=== PATIENT | male | born 1960 | race Caucasian/White ===

== ENCOUNTER 2017-01-09 13:59 | Inpatient (IN) | payer OTHER ==
[2017-01-09] MEDS ORDERED: ZOFRAN IV PRN ×2 (15:19→16:11)
[2017-01-09] MEDS ORDERED: NORCO-7.5 PO PRN (15:19)
[2017-01-09] MEDS ORDERED: TYLENOL PO PRN ×2 (15:19→16:11)
[2017-01-09] MEDS ORDERED: ZOSYN 3.375 GM/NS 50 ML IV SCH (15:30)
[2017-01-09] MEDS ORDERED: NS 1,000 ML IV SCH (15:30)
--- NOTE | 2017-01-09 15:54 | HISTORY AND PHYSICAL ---
HISTORY OF PRESENT ILLNESS: This is a 56-year-old well known to me who has a history of morbid obesity and chronic venous insufficiency. He has had periodic bouts of cellulitis and was admitted back on 03/01/2015 with a similar episode. He has had increased redness, increased swelling, and has had some fever at home and some chills. PAST MEDICAL HISTORY: Other past medical history is fairly unremarkable other than he has had, I think, corneal aplasia or dysplasia, and he has had some surgeries on his eyes. ALLERGIES: No known drug allergies. FAMILY HISTORY: Noncontributory. SOCIAL HISTORY: Negative for alcohol or tobacco. He has 3 children. 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 REVIEW OF SYSTEMS: General: He has been attempting to lose some weight. I am not sure if his weight has fluctuated much at all. HEENT: Unremarkable. Respiratory: No increased work of breathing or dyspnea. Cardiovascular: No chest pain or detected palpitations. Gastrointestinal: Unremarkable. Genitourinary: Unremarkable. Musculoskeletal/Neurologic: No significant complaints. Endocrinologic/Hematologic: No significant history. PHYSICAL EXAMINATION: GENERAL: On presentation, well-developed, well nourished, white male. Height 6 feet 2 inches. Weight 367 pounds. HEENT: Pupils equal, round, reactive. CVP less than 6 cm. LUNGS: Clear in all lung torres. CARDIOVASCULAR: Regular rhythm and rate, without murmurs or S3. ABDOMEN: Soft. SKIN: Warm and dry. ABDOMEN: Soft. EXTREMITIES: Lower extremities with lymphedema from the feet all the way up to the knee, and intense erythema. LABORATORIES: Pending at this time. ASSESSMENT AND PLAN: Cellulitis with fever and some bacteremia, so will put him on vancomycin and Zosyn for now and see if we can get this calmed down. May consider using Unna boots or Unna wrap. At this point, we are just going to try and elevate his legs. We will give him IV fluid of just normal saline with saline lock. Will keep the saline lock right now. He does not appear dehydrated. I want to check his laboratories and see how his renal function is doing.
[2017-01-09] MEDS ORDERED: VANCOMYCIN IV PER PHARMACY MISC SCH (16:11)
[2017-01-09 16:24] LABS: BASO% 0.1 % (0.0-0.8); EOS# 0.01 X1000 (0.0-0.7); EOS% 0.1 % (0.0-10.0); HEMATOCRIT 38.1 % (42.0-52.0); HEMOGLOBIN 12.7 g/dL (14.0-18.0); IMM GRAN# 0.09 X1000 (0.0-0.04); IMM GRAN% 0.5 % (0.0-0.5); LYMPH# 0.23 X1000 (1.2-3.4); LYMPH% 1.3 % (20.5-51.1); MANUAL DIFF NEEDED? NO; MCH 29.8 PG (27-31); MCHC 33.3 g/dL (33-37); MCV 89.4 FL (81-99); MONO# 0.58 X1000 (0.11-0.59); MONO% 3.2 % (1.7-9.3); MPV 9.2 FL (7.4-10.4); NEUT% 94.8 % (42.2-75.2); PLT 263 X1000 (130-400); RBC 4.26 XMIL (4.7-6.1)
[2017-01-09] MEDS: ZOSYN 3.375 GM/NS 50 ML IV SCH ×2 (16:35→23:34)
[2017-01-09 16:47] LABS: AGAP 14; ALBUMIN 3.4 g/dL (3.5-5.0); ALKALINE PHOSPHATASE 72 U/L (32-122); BUN 16 mg/dL (8-22); CALCIUM 8.5 mg/dL (8.8-10.2); CHLORIDE 100 mmol/L (98-107); COSMO 275; GOT 20 U/L (10-34); GPT 23 U/L (10-44); SODIUM 136 mmol/L (136-145); TCO2 22 mmol/L (25-35); TOTAL PROTEIN 6.2 g/dL (6.3-8.3)
[2017-01-09] MEDS ORDERED: BACTROBAN CREAM TOP SCH (17:00)
[2017-01-09] MEDS ORDERED: VANCOMYCIN 2 GM in NS 500 ML IV ONE (18:00)
[2017-01-09] MEDS: NORCO-7.5 PO PRN ×2 (21:01→23:03)
[2017-01-09] MEDS: LOVENOX SUBQ SCH (21:03)
[2017-01-10] MEDS: ZOSYN 3.375 GM/NS 50 ML IV SCH ×2 (05:07→12:18)
[2017-01-10] MEDS: NORCO-7.5 PO PRN ×4 (05:39→21:26)
[2017-01-10] MEDS: PRILOSEC PO SCH (06:13)
[2017-01-10] MEDS: VANCOMYCIN 1,750 MG in NS 250 ML IV SCH ×2 (06:30→19:34)
[2017-01-10] MEDS ORDERED: PRILOSEC PO SCH (07:00)
[2017-01-10] MEDS: LOVENOX SUBQ SCH ×2 (09:09→20:48)
[2017-01-10] MEDS: BACTROBAN CREAM TOP SCH ×3 (09:09→17:29)
--- NOTE | 2017-01-10 11:44 | PROGRESS NOTE ---
DATE: 01/10/2017 SUBJECTIVE: He slept off and on. He said his legs are not hurting at the present time. The Unna wraps are on, but had slipped down a little bit to mid calf. The erythema seems to be a diminished, especially in the left leg. He did have a chill during the night. OBJECTIVE: Vital Signs: Temperature 97.7 degrees, pulse 86, respirations 18, blood pressure 116/62. CVP is less than 6 cm. Lungs: Clear in all lung torres. Cardiovascular: Regular rhythm and rate, without murmur or S3. Abdomen: Soft. Skin: Warm and dry. Extremities: Both lower calves with some induration and lymphedema, especially in the posterior. LABORATORIES: White blood cell count 17,860, hematocrit 38, platelet count 263,000. Sodium 136, potassium 4.0, chloride 100, bicarbonate 22, BUN 16, creatinine 1.0, albumin 3.4. ASSESSMENT AND PLAN: Cellulitis with bacteremia, elevated white count, so a systemic inflammatory response with this. Continue the vancomycin and the Zosyn. I am going to change his wraps. We will use an Eddie bandage that just goes from his ankle up to his knee. Continue to elevate his legs. Renal function looks good. Recheck the white blood cell count, I guess, in the morning. We will try and apply some Bactroban, as well, to the legs and see if this will add anything.
[2017-01-10] MEDS: ZOSYN 3.375 GM in NS 100 ML IV SCH (17:29)
[2017-01-11] MEDS: ZOSYN 3.375 GM in NS 100 ML IV SCH ×5 (00:45→22:59)
[2017-01-11] MEDS: VANCOMYCIN 1,750 MG in NS 250 ML IV SCH ×2 (05:43→18:20)
[2017-01-11] MEDS: PRILOSEC PO SCH (06:19)
[2017-01-11] MEDS: BACTROBAN CREAM TOP SCH ×3 (08:16→16:56)
[2017-01-11] MEDS: LOVENOX SUBQ SCH ×2 (08:17→20:59)
--- NOTE | 2017-01-11 08:55 | PROGRESS NOTE ---
DATE: 01/11/2017 SUBJECTIVE: Mr. Pathak's left leg is pretty red. It has more erythema. Not much tenderness to it. He is not hurting. The right leg looks good. We have been wrapping it with an Eddie bandage. He has got good capillary refill down there in the calf but it is circumferentially read from about 10 cm above the ankle to about 10 cm from his patella and the posterior seems to be less swollen and less dense. PHYSICAL EXAMINATION: Lungs: Lungs are clear in all lung torres. Cardiovascular Examination: Regular rhythm and rate without murmur or S3. Abdomen: Soft. Skin: Warm and dry. Is and Os: Good urine output. ASSESSMENT AND PLAN: Cellulitis, bacteremia, elevated white blood cell count. He is on Zosyn and vancomycin. Cultures are negative, blood cultures thus far. I will continue the Eddie and bandage and continue to elevate the legs. I think we are making some progress. He has not had the fever and chills. Will recheck a blood count and basic metabolic profile in the morning.
[2017-01-11] MEDS: NORCO-7.5 PO PRN ×2 (11:16→20:58)
[2017-01-12] MEDS: ZOSYN 3.375 GM in NS 100 ML IV SCH ×2 (05:45→18:36)
[2017-01-12] MEDS: VANCOMYCIN 1,750 MG in NS 250 ML IV SCH (06:27)
[2017-01-12] MEDS: PRILOSEC PO SCH ×2 (06:27→06:32)
[2017-01-12 07:43] LABS: MANUAL DIFF NEEDED? NO
[2017-01-12 08:03] LABS: BASO% 0.5 % (0.0-0.8); EOS# 0.28 X1000 (0.0-0.7); EOS% 4.4 % (0.0-10.0); HEMATOCRIT 36.9 % (42.0-52.0); IMM GRAN# 0.02 X1000 (0.0-0.04); IMM GRAN% 0.3 % (0.0-0.5); LYMPH# 0.88 X1000 (1.2-3.4); LYMPH% 13.8 % (20.5-51.1); MCH 29.3 PG (27-31); MCHC 32.5 g/dL (33-37); MCV 90.2 FL (81-99); MONO# 0.52 X1000 (0.11-0.59); MONO% 8.1 % (1.7-9.3); MPV 9.4 FL (7.4-10.4); NEUT% 72.9 % (42.2-75.2); PLT 262 X1000 (130-400); RBC 4.09 XMIL (4.7-6.1)
[2017-01-12 08:10] LABS: AGAP 11; BUN 10 mg/dL (8-22); CALCIUM 8.7 mg/dL (8.8-10.2); CHLORIDE 104 mmol/L (98-107); COSMO 282; POTASSIUM 4.3 mmol/L (3.5-5.1); SODIUM 142 mmol/L (136-145); TCO2 27 mmol/L (25-35)
[2017-01-12] MEDS: NORCO-7.5 PO PRN ×2 (09:47→22:18)
[2017-01-12] MEDS: BACTROBAN CREAM TOP SCH ×3 (09:49→19:56)
[2017-01-12] MEDS: LOVENOX SUBQ SCH ×2 (09:49→22:18)
[2017-01-12 12:04] LABS: INR 1.01; PROTIME 10.3 Seconds (9.2-11.7)
[2017-01-12] MEDS ORDERED: NS 250 ML ONE (15:48)
--- NOTE | 2017-01-12 16:24 | PROGRESS NOTE ---
DATE: 01/12/2017 SUBJECTIVE: Mr. Pathak's left leg still looks pretty red and angry. His IV has infiltrated. I think he still needs more IV antibiotic. I am going to ask Dr. Goss to look as well and consult Infectious Disease. PHYSICAL EXAMINATION: Vital Signs: Temperature 98.4 degrees, pulse 70, respirations 16, blood pressure 105/58. Eyes: Pupils equal, round. Lungs: Clear in all lung torres. Cardiovascular: Regular rhythm, rate without murmur or S3. Abdomen: Soft. Skin: Warm and dry. Urine output 1200 mL. LAB: White count 6390, hematocrit 36, platelet count 262,000. Sodium 142, potassium 4.3, chloride 104, bicarb 27, BUN 10, creatinine 1.0. ASSESSMENT AND PLAN: 1. Cellulitis, bacteremia, elevated white blood count on Zosyn and vancomycin. Will need to get IV access. I think he needs a longer term IV antibiotics. Will ask Dr. Goss to help assist about what antibiotics and how long he probably needs treatment. 2. Morbid obesity aware. Has had long discussions and continue encourage weight reduction. 3. Chronic venous insufficiency. Did note his repeat lab. Renal function looks good. White count has come down nicely. Will continue elevate his legs. We are using Eddie bandages, the older wraps really do not work very well on his large legs.
[2017-01-12] MEDS ORDERED: ZOSYN 3.375 GM/NS 50 ML IV SCH (18:00)
[2017-01-12] MEDS: KEFZOL 2 GM/D5W 50 ML IV SCH (19:56)
[2017-01-13] MEDS: KEFZOL 2 GM/D5W 50 ML IV SCH ×2 (03:31→11:37)
[2017-01-13 05:11] VITALS: BP 132/79
--- NOTE | 2017-01-13 06:15 | CONSULTATION ---
DATE OF CONSULTATION: 01/12/2017 CONCLUSION: Patient is admitted with leg cellulitis to both legs. The left was more involved than with the right leg. The patient is certainly is predisposed to this by being very obese and having chronic edema in his legs. RECOMMENDATIONS: I would suggest switching the patient's antibiotic to Ancef. I agree with sending the patient home with a PICC for IV Ancef 2 g IV every 8 hours for 2 weeks, then I would suggest that the patient see Dr. Mota in 2 weeks and at that time if he thinks the legs look good enough, he can stop the Ancef and I would suggest putting the patient on Keflex 500 mg p.o. every 8 hours for another 1-2 weeks. I would also suggest giving the patient an additional prescription for Keflex to take so that the patient could fill it and at the first sign he is getting leg cellulitis, he can have Keflex on hand and start taking it. Also, I told the patient that when he does start doing it when he has an acute attack that he should get off his legs and elevate them as much as possible. I have also told him that he should call Dr. Mota's office and let him know that he has started Keflex and leg elevation because of the possible attack of cellulitis and if that does not work, then certainly the patient would most likely need to be hospitalized. I told the patient though that the biggest thing for him would be to lose weight and to try to elevate his legs as much as possible, even when he does not have leg cellulitis. I looked for athlete's foot in this patient. I did not find any. Sometimes, this is the portal of entry for the organisms to get into the leg. With a patient that has so much edema, even just a minor scratch on his leg would be enough to cause an infection to develop. DISCUSSION: The patient had an attack of leg cellulitis. Two years ago, he had a similar attack. Laboratory studies thus far show a CBC with a white count of 6390, hemoglobin 12 and platelet count 262,000. Creatinine is 1, GFR is greater than 60. Liver function studies are normal. Blood cultures are sterile. PAST MEDICAL HISTORY/REVIEW OF SYSTEMS: Eyes and Ears: He has decreased vision. His hearing is okay. Neck: No stiffness. Respiratory: No cough or shortness of breath. Cardiovascular: No chest pain or palpitations. GI: No nausea, vomiting, or diarrhea. : No dysuria or flank pain. Bones, Joints, Muscles: He is not complaining of joint pain or myalgias. Endocrine: He denies diabetes or thyroid disease. Hematologic: No anemia or bleeding tendency. Neurologic: No seizures or loss of motor or sensory function. The remainder of the patient' s review of systems was completed and was negative. PREVIOUS HOSPITALIZATIONS AND OPERATIONS: Patient had ocular surgery. He has had an admission for leg cellulitis. MEDICAL DISEASES: Positive for obesity and negative for diabetes or hypertension. INFECTIOUS DISEASE HISTORY: Positive for leg cellulitis. Negative for pneumonia. FAMILY HISTORY: Positive for congestive heart failure and Alzheimer disease. SOCIAL HISTORY[place] . He is a software chart computer. He has fish and hamsters for pets. MEDICATIONS: He takes no routine medications. ALLERGIES: He is allergic to Advil. PHYSICAL EXAMINATION: Vital Signs: Temperature is 97.7 degrees, pulse 81, respirations 22, blood pressure is 129/71. Patient weighs 450 pounds. General: This is a very obese middle-aged male. He is in no acute distress. Head, Eyes, Ears, Nose, and Throat: He can hear my spoken words and see near objects. No drainage noted from the nose, ears or neck No meningismus. Thorax: Increased AP diameter of the chest. Lungs: Clear to auscultation. Cardiovascular: Regular heart rate. Abdomen: Soft and nontender. Extremities : Both legs were wrapped with elastic wraps. The visible part of the leg showed erythema. There was no crusting. There was no purulence and there was no odor to the legs. Neurologic: Patient is alert. He can move his extremities. There is no tremor. His sensation is intact to touch. His memory regarding his medical history is intact. Thank you for the consult. [facility]AMPUSLetha
[2017-01-13] MEDS: PRILOSEC PO SCH (06:54)
[2017-01-13] MEDS: LOVENOX SUBQ SCH ×2 (09:24→09:29)
[2017-01-13] MEDS: BACTROBAN CREAM TOP SCH (09:24)
[2017-01-13] MEDS: NORCO-7.5 PO PRN (09:27)
--- NOTE | 2017-01-13 15:00 | DISCHARGE SUMMARY ---
ADMISSION DATE: 01/09/2017 DISCHARGE DATE: 01/13/2017 A 56-year-old patient well known to me with morbid obesity, chronic venous insufficiency, periodic bouts of cellulitis and this time he was hurting more in his left lower extremity with swelling and increased erythema in spite of p.o. antibiotics. He was admitted. Elevated his legs. Started him initially on Zosyn and vancomycin. Saw very slow improvement. [place] we could switch him over to Ancef. Appreciated Dr. Oneal Goss help. His left leg was more involved than his right and we put a PICC line in due to trouble with access. Ancef 2g IV q.8 hours. Plan is, I thought he could go home on 01/13/2017. Continue Ancef 1g q.8 hours for 2 weeks. At that time, if things are better, we will stop his PICC line give him some Keflex to take at home. Emphasized the need and may put the patient on Keflex another 500 mg every 8 hours for another 1-2 weeks and give an additional prescription for Keflex in case he has signs of returning cellulitis. I encouraged him to continue his weight reduction. We found that Eddie wraps work better than the Unna boots for stain on his legs. Was discharged home on 01/13/2017. Home health set up for the injectable Ancef.
== END 2017-01-13 13:11 | disposition home health service (06) | DRG 603 ==
LOC: DIRADM 13:59 → 3N 14:19
PROVIDERS: ADMIT Emergency Medicine; ATTEND Emergency Medicine
PROC: 02HV33Z Insertion of Infusion Device into Superior Vena Cava, Percutaneous Approach (ICD-10-PCS; principal; 2017-01-12)
DX: L03.116 Cellulitis of left lower limb (principal); R78.81 Bacteremia; Z68.42 Body mass index [BMI] 45.0-49.9, adult; I87.2 Venous insufficiency (chronic) (peripheral); L03.115 Cellulitis of right lower limb; E66.01 Morbid (severe) obesity due to excess calories; Z82.49 Family history of ischemic heart disease and other diseases of the circulatory system
CPT/HCPCS: 36569; 80048; 80053; 80202; 84443; 85025; 85610; 87040; J0690; J1650; J2543; J3370; J7040; J7050